=== PATIENT | female | born 1990 | race Caucasian/White ===

== ENCOUNTER 2020-11-29 08:00 | Inpatient (IN) | payer OTHER ==
[2020-11-29] MEDS: ELECTROLYTE-148 SOLN 1,000 ML IV SCH (08:30)
[2020-11-29 09:12] VITALS: BMI 42.0
[2020-11-29] MEDS ORDERED: CITRIC ACID/SODIUM CITRATE 30 ML UNIT-DOSE CUP PO ONE (09:32)
[2020-11-29] MEDS ORDERED: OXYTOCIN 20 UNITS in 0.9% NS 20 UNIT/1,000 ML INFUS.BAG IV ONE ×2 (10:35→12:05)
[2020-11-29] MEDS ORDERED: morphine SULFATE/PF 0.5 MG/ML (2cc Syringe - QUVA) ONE (10:39)
[2020-11-29] MEDS ORDERED: ceFAZolin SODIUM 1 GM VIAL ONE (10:51)
[2020-11-29] MEDS: ceFAZolin 2 GRAM PREMIX BAG IVPB SCH ×2 (10:54→20:06)
[2020-11-29] MEDS ORDERED: ONDANSETRON 4 MG/2 ML VIAL ONE (10:55)
[2020-11-29] MEDS ORDERED: OXYTOCIN 10 UNITS/ML VIAL ONE (10:55)
[2020-11-29] MEDS ORDERED: DEXAMETHASONE SOD PHOSPHATE 4 MG/1 ML VIAL ONE (11:19)
[2020-11-29 11:54] LABS: CORD PCO2 61.4 mmHg (30-78); CORD pH 7.245 (7.14-7.44)
[2020-11-29 11:57] LABS: CORD BASE EXCESS -2.4 mmol/L (0-2); CORD HCO3 24.8 mmHg (20-29); CORD PCO2 52.4 mmHg (30-78); CORD pH 7.293 (7.14-7.44)
[2020-11-29] MEDS ORDERED: ONDANSETRON 4 MG/2 ML VIAL IVPUSH PRN (12:10)
[2020-11-29] MEDS ORDERED: morphine SULFATE/PF 0.5 MG/ML (2cc Syringe - QUVA) EP ONE (12:10)
[2020-11-29] MEDS ORDERED: BENZOCAINE 20% 57 GM BOTTLE TP PRN (12:25)
[2020-11-29] MEDS ORDERED: IBUPROFEN 800 MG/8 ML IJ IVPB PRN (12:25)
[2020-11-29] MEDS ORDERED: BENZOCAINE 28 GM HEMORRHOIDAL OINTMENT TP PRN (12:25)
[2020-11-29] MEDS ORDERED: WITCH HAZEL 50% (TUCKS) 40 PAD/JAR PAD TP PRN (12:25)
[2020-11-29] MEDS ORDERED: METHYLERGONOVINE MALEATE 0.2 MG/1 ML AMP IM PRN (12:25)
[2020-11-29] MEDS: OXYTOCIN 20 UNITS in 0.9% NS 20 UNIT/1,000 ML INFUS.BAG IV SCH (13:00)
[2020-11-29] MEDS: ENOXAPARIN NA (PORCINE) 40 MG/0.4 ML DISP.SYRIN SQ SCH (13:56)
[2020-11-30] MEDS: SIMETHICONE 80 MG TAB.CHEW (FP) PO PRN ×4 (03:16→22:00)
[2020-11-30] MEDS: ACETAMINOPHEN 325 MG TABLET (FP) PO PRN ×4 (03:18→21:58)
[2020-11-30] MEDS: IBUPROFEN 600 MG TABLET (FP) PO PRN ×4 (03:18→21:58)
[2020-11-30] MEDS: ceFAZolin 2 GRAM PREMIX BAG IVPB SCH (04:10)
[2020-11-30 07:47] LABS: BASO % 0.3 % (0-2.0); EOS % 0.1 % (0-4.5); HEMOGLOBIN 9.3 GM/dL (10.7-15.3); LYMPH % 15.6 % (8-40); MCH 27.6 pg (25.7-33.7); MCHC 33.2 g/dl (32.0-36.0); MEAN CELL VOLUME 83.2 fl (80-96); MEAN PLT VOLUME 7.4 fl (7.5-11.1); MONO % 5.7 % (3.8-10.2); NEUT % 78.3 % (42.8-82.8); PLATELET COUNT 236 K/MM3 (134-434); RBC 3.37 M/mm3 (3.60-5.2); RDW 15.8 % (11.6-15.6); WHITE BLOOD COUNT 15.3 K/mm3 (4.0-10.0)
[2020-11-30] MEDS: ENOXAPARIN NA (PORCINE) 40 MG/0.4 ML DISP.SYRIN SQ SCH (09:35)
[2020-11-30] MEDS: PRENATAL VITAMINS W/ FOLIC ACID TABLET (FP) PO SCH (09:35)
[2020-11-30] MEDS ORDERED: ALBUTEROL SO4 2.5/IPRATROPIUM 0.5 INH SOL 3 ML VIAL.NEB. NEB PRN (10:27)
[2020-11-30] MEDS: BUDESONIDE/FORMETEROL FUMARATE 80/4.5 mcg INHALER IH SCH ×2 (11:32→22:00)
[2020-11-30] MEDS ORDERED: BISACODYL 10 MG SUPP.RECT RC PRN (12:26)
[2020-11-30] MEDS: ELECTROLYTE-148 SOLN 1,000 ML IV SCH (20:39)
[2020-11-30] MEDS: OXYTOCIN 20 UNITS in 0.9% NS 20 UNIT/1,000 ML INFUS.BAG IV SCH (20:39)
[2020-11-30] MEDS: LACTATED RINGERS SOLUTION 1,000 ML IV SCH (20:39)
[2020-11-30] MEDS: oxyCODONE HCL 5 MG TABLET PO PRN (21:59)
[2020-12-01] MEDS: LEVOTHYROXINE NA 25 MCG TABLET (FP) PO SCH (06:09)
[2020-12-01] MEDS: ACETAMINOPHEN 325 MG TABLET (FP) PO PRN ×4 (06:15→22:10)
[2020-12-01] MEDS: IBUPROFEN 600 MG TABLET (FP) PO PRN ×4 (06:15→22:10)
[2020-12-01] MEDS: SIMETHICONE 80 MG TAB.CHEW (FP) PO PRN ×4 (06:16→22:11)
[2020-12-01] MEDS: ENOXAPARIN NA (PORCINE) 40 MG/0.4 ML DISP.SYRIN SQ SCH (09:33)
[2020-12-01] MEDS: PRENATAL VITAMINS W/ FOLIC ACID TABLET (FP) PO SCH (09:33)
[2020-12-01] MEDS: BUDESONIDE/FORMETEROL FUMARATE 80/4.5 mcg INHALER IH SCH ×2 (09:37→22:09)
[2020-12-01] MEDS: oxyCODONE HCL 5 MG TABLET PO PRN ×2 (14:43→22:11)
[2020-12-02] MEDS: ACETAMINOPHEN 325 MG TABLET (FP) PO PRN (06:14)
[2020-12-02] MEDS: LEVOTHYROXINE NA 25 MCG TABLET (FP) PO SCH (06:14)
[2020-12-02] MEDS: IBUPROFEN 600 MG TABLET (FP) PO PRN (06:15)
[2020-12-02] MEDS: oxyCODONE HCL 5 MG TABLET PO PRN (06:15)
[2020-12-02] MEDS: SIMETHICONE 80 MG TAB.CHEW (FP) PO PRN (06:16)
[2020-12-02 08:48] LABS: BASO % 0.2 % (0-2.0); EOS % 3.2 % (0-4.5); HEMATOCRIT 29.6 % (32.4-45.2); HEMOGLOBIN 9.9 GM/dL (10.7-15.3); LYMPH % 10.8 % (8-40); MCH 27.6 pg (25.7-33.7); MCHC 33.4 g/dl (32.0-36.0); MEAN CELL VOLUME 82.6 fl (80-96); MEAN PLT VOLUME 6.9 fl (7.5-11.1); MONO % 6.5 % (3.8-10.2); NEUT % 79.3 % (42.8-82.8); PLATELET COUNT 264 K/MM3 (134-434); RBC 3.59 M/mm3 (3.60-5.2); RDW 16.4 % (11.6-15.6); WHITE BLOOD COUNT 12.9 K/mm3 (4.0-10.0)
[2020-12-02] MEDS: ENOXAPARIN NA (PORCINE) 40 MG/0.4 ML DISP.SYRIN SQ SCH (09:40)
[2020-12-02] MEDS: PRENATAL VITAMINS W/ FOLIC ACID TABLET (FP) PO SCH (09:41)
[2020-12-02] MEDS: BUDESONIDE/FORMETEROL FUMARATE 80/4.5 mcg INHALER IH SCH (09:41)
[2020-12-02 09:57] VITALS: BP 137/81; PULSE 82; TEMP 97.9
== END 2020-12-02 11:55 | disposition home or self-care (01) | DRG 540 ==
LOC: JLDR 08:10 → J3W 13:45
PROVIDERS: ADMIT Obstetrics & Gynecology; ATTEND Obstetrics & Gynecology
PROC: 10D00Z1 Extraction of Products of Conception, Low, Open Approach (ICD-10-PCS; principal; 2020-11-29)
DX: O34.211 Maternal care for low transverse scar from previous cesarean delivery (principal); N85.8 Other specified noninflammatory disorders of uterus; O99.214 Obesity complicating childbirth; Z3A.39 39 weeks gestation of pregnancy; Z37.0 Single live birth
CPT/HCPCS: 36415; 36600; 80048; 82803; 85025; 85610; 85730; 86780; 86850; 86900; 86901; 88307-TC; C9803; U0003; U0005

== ENCOUNTER 2023-02-26 08:14 | Inpatient (IN) | payer OTHER ==
[2023-02-26] MEDS: ELECTROLYTE-148 SOLN 1,000 ML IV SCH ×2 (08:45→10:30)
[2023-02-26 09:07] VITALS: BMI 44.6
[2023-02-26 09:07] LABS: BASO % 0.3 % (0-2.0); HEMOGLOBIN 10.3 GM/dL (10.7-15.3); LYMPH % 14.7 % (8-40); MCH 26.3 pg (25.7-33.7); MCHC 31.1 g/dl (32.0-36.0); MEAN CELL VOLUME 84.4 fl (80-96); MEAN PLT VOLUME 7.5 fl (7.5-11.1); MONO % 4.7 % (3.8-10.2); NEUT % 78.3 % (42.8-82.8); PLATELET COUNT 363 10^3/uL (134-434); RBC 3.91 M/mm3 (3.60-5.2); RDW 19.8 % (11.6-15.6); WHITE BLOOD COUNT 11.9 K/mm3 (4.0-10.0)
[2023-02-26 09:14] LABS: INR 0.97 (0.83-1.09); PROTHROMBIN TIME (PATIENT) 11.3 SEC (9.7-13.0)
[2023-02-26 09:17] LABS: ACTIVATED PTT 28.4 SECONDS (25.2-36.5)
[2023-02-26 09:29] LABS: POTASSIUM 4.3 mmol/L (3.5-5.1)
[2023-02-26 09:30] LABS: CALCIUM 8.1 mg/dL (8.5-10.1)
[2023-02-26 09:31] LABS: BLOOD UREA NITROGEN 8.3 mg/dL (7-18)
[2023-02-26 09:34] LABS: CREATININE 0.4 mg/dL (0.55-1.3)
[2023-02-26] MEDS ORDERED: CITRIC ACID/SODIUM CITRATE 30 ML UNIT-DOSE CUP PO ONE (11:07)
[2023-02-26] MEDS ORDERED: morphine SULFATE/PF 1 MG/2 ML (2cc Syringe - QUVA) ONE (11:09)
[2023-02-26] MEDS ORDERED: OXYTOCIN 10 UNITS/ML VIAL ONE ×2 (11:34)
[2023-02-26] MEDS ORDERED: ceFAZolin SODIUM 1 GM VIAL ONE ×2 (11:34)
[2023-02-26] MEDS ORDERED: FENTANYL CITRATE/PF 50 MCG/ML VIAL ONE ×2 (11:57→12:20)
[2023-02-26] MEDS ORDERED: MIDAZOLAM HCL 2 MG/2 ML SINGLE DOSE VIAL ONE (12:21)
[2023-02-26] MEDS ORDERED: WITCH HAZEL 50% (TUCKS) 40 PAD/JAR PAD TP PRN (12:55)
[2023-02-26] MEDS ORDERED: BENZOCAINE 20% 57 GM BOTTLE TP PRN (12:55)
[2023-02-26] MEDS ORDERED: IBUPROFEN 800 MG/8 ML IJ IVPB PRN (12:55)
[2023-02-26] MEDS ORDERED: METHYLERGONOVINE MALEATE 0.2 MG/1 ML AMP IM PRN (12:55)
[2023-02-26] MEDS ORDERED: BENZOCAINE 28 GM HEMORRHOIDAL OINTMENT TP PRN (12:55)
[2023-02-26 12:56] LABS: CORD BASE EXCESS -2.7 mmol/L (0-2); CORD HCO3 22.8 mmHg (20-29); CORD PCO2 42.4 mmHg (30-78); CORD pH 7.349 (7.14-7.44)
[2023-02-26 12:58] LABS: CORD HCO3 25.8 mmHg (20-29); CORD PCO2 57.9 mmHg (30-78); CORD pH 7.266 (7.14-7.44)
[2023-02-26] MEDS ORDERED: OXYTOCIN 20 UNITS in 0.9% NS 20 UNIT/1,000 ML INFUS.BAG IV ONE (14:32)
[2023-02-26] MEDS: OXYTOCIN 20 UNITS in 0.9% NS 20 UNIT/1,000 ML INFUS.BAG IV SCH ×2 (14:40→22:21)
[2023-02-26] MEDS: CEFAZOLIN 1 GM in DEXTROSE 5%-WATER - 50 ML IVPB SCH (18:06)
[2023-02-26] MEDS: IBUPROFEN 800 MG/8 ML IJ IVPB PRN (19:43)
[2023-02-27] MEDS ORDERED: oxyCODONE HCL 5 MG TABLET PO PRN ×2 (00:55)
[2023-02-27] MEDS: CEFAZOLIN 1 GM in DEXTROSE 5%-WATER - 50 ML IVPB SCH ×2 (01:58→10:42)
[2023-02-27] MEDS: ACETAMINOPHEN 325 MG TABLET (FP) PO PRN ×3 (02:10→18:36)
[2023-02-27] MEDS: IBUPROFEN 800 MG/8 ML IJ IVPB PRN (04:06)
[2023-02-27 06:16] LABS: BASO % 0.2 % (0-2.0); EOS % 2.4 % (0-4.5); HEMATOCRIT 28.4 % (32.4-45.2); HEMOGLOBIN 9.2 GM/dL (10.7-15.3); LYMPH % 15.8 % (8-40); MCH 27.5 pg (25.7-33.7); MCHC 32.4 g/dl (32.0-36.0); MEAN PLT VOLUME 7.3 fl (7.5-11.1); MONO % 6.8 % (3.8-10.2); NEUT % 74.8 % (42.8-82.8); PLATELET COUNT 247 10^3/uL (134-434); RBC 3.35 M/mm3 (3.60-5.2); RDW 19.8 % (11.6-15.6); WHITE BLOOD COUNT 8.2 K/mm3 (4.0-10.0)
[2023-02-27] MEDS: IBUPROFEN 600 MG TABLET (FP) PO PRN ×3 (10:40→21:31)
[2023-02-27] MEDS: PRENATAL VITAMINS W/ FOLIC ACID TABLET (FP) PO SCH (10:41)
[2023-02-27] MEDS: ENOXAPARIN NA (PORCINE) 40 MG/0.4 ML DISP.SYRIN SQ SCH (10:42)
[2023-02-27] MEDS ORDERED: BISACODYL 10 MG SUPP.RECT RC PRN (12:55)
[2023-02-27] MEDS: SIMETHICONE 80 MG TAB.CHEW (FP) PO PRN ×2 (15:37→21:32)
[2023-02-28] MEDS: ACETAMINOPHEN 325 MG TABLET (FP) PO PRN ×3 (00:17→19:31)
[2023-02-28] MEDS: SIMETHICONE 80 MG TAB.CHEW (FP) PO PRN (04:32)
[2023-02-28] MEDS: IBUPROFEN 600 MG TABLET (FP) PO PRN ×4 (04:32→22:49)
[2023-02-28] MEDS: PRENATAL VITAMINS W/ FOLIC ACID TABLET (FP) PO SCH (09:37)
[2023-02-28] MEDS: ENOXAPARIN NA (PORCINE) 40 MG/0.4 ML DISP.SYRIN SQ SCH (09:37)
[2023-02-28 22:12] VITALS: RESP 18
[2023-03-01 07:25] LABS: BASO % 0.3 % (0-2.0); HEMATOCRIT 30.8 % (32.4-45.2); HEMOGLOBIN 9.7 GM/dL (10.7-15.3); LYMPH % 18.4 % (8-40); MCH 26.8 pg (25.7-33.7); MCHC 31.5 g/dl (32.0-36.0); MEAN CELL VOLUME 84.9 fl (80-96); MEAN PLT VOLUME 7.1 fl (7.5-11.1); MONO % 6.4 % (3.8-10.2); NEUT % 68.9 % (42.8-82.8); PLATELET COUNT 352 10^3/uL (134-434); RBC 3.63 M/mm3 (3.60-5.2); RDW 20.1 % (11.6-15.6); WHITE BLOOD COUNT 7.6 K/mm3 (4.0-10.0)
[2023-03-01] MEDS: IBUPROFEN 600 MG TABLET (FP) PO PRN (09:08)
[2023-03-01] MEDS: SIMETHICONE 80 MG TAB.CHEW (FP) PO PRN (09:10)
[2023-03-01] MEDS: ENOXAPARIN NA (PORCINE) 40 MG/0.4 ML DISP.SYRIN SQ SCH (09:10)
[2023-03-01] MEDS: PRENATAL VITAMINS W/ FOLIC ACID TABLET (FP) PO SCH (09:10)
[2023-03-01 10:09] VITALS: BP 145/67; PULSE 90; TEMP 97.6
== END 2023-03-01 12:35 | disposition home or self-care (01) | DRG 540 ==
LOC: JLDR 08:14 → J3W 14:40
PROVIDERS: ADMIT Obstetrics & Gynecology; ATTEND Obstetrics & Gynecology
PROC: 10D00Z1 Extraction of Products of Conception, Low, Open Approach (ICD-10-PCS; principal; 2023-02-26)
DX: O34.219 Maternal care for unspecified type scar from previous cesarean delivery (principal); O99.214 Obesity complicating childbirth; Z3A.39 39 weeks gestation of pregnancy; Z37.0 Single live birth
CPT/HCPCS: 36415; 36600; 80048; 82803; 85025; 85610; 85730; 86780; 86850; 86900; 86901; 94010